=== PATIENT | female | born 1995 | race Caucasian/White ===

== ENCOUNTER 2022-05-25 10:13 | Emergency (ER) | payer OTHER ==
[~2022-05-25] VITALS: Ht 165.1 cm; Wt 117.0 kg
[2022-05-25 10:25] VITALS: BP 127/65
--- NOTE | 2022-05-25 10:28 | NUR ---
AMBULATED TO BED 8
[2022-05-25] MEDS ORDERED: KETOROLAC 60 MG/2 ML VIAL IM ONE (10:40)
--- NOTE | 2022-05-25 10:49 | NUR ---
PT AMBULATED TO RESTROOM
--- NOTE | 2022-05-25 10:50 | NUR ---
26YO FEMALE PT C/O ACHING / NECK PAIN XLASTNIGHT. PT STATES HEARING A "POP" WHILE STRETCHING NECK. NOTES MILD WEAKNESS IN R THUMB. DENIES N/V/D , CHEST PAIN OR SOB. NUMBING OR LOSS OF SENSATION. NO VISIBLE INJURY IN NECK , ARM OR THUMB. STATES MILD RELIEF AFTER TAKING TYLENOL LAST NIGHT. LIMITED ROM IN NECK W/ VISIBLE DISCOMFORT. PT AAOX4, RESPIRATIONS EVEN AND UNLABORED. HOB POSITIONED PER COMFORT. HX: DENIES NKA
[2022-05-25 11:14] VITALS: BP 127/65
--- NOTE | 2022-05-25 11:14 | NUR ---
Patient discharged with v/s stable. Written and verbal after care instructions FOR MUSCLE PAIN given and explained. Patient verbalized understanding. Ambulatory with steady gait. All questions addressed prior to discharge. Advised to follow up with PMD.
== END 2022-05-25 11:14 | disposition home or self-care (01) ==
LOC: MED 10:13
DX: M54.2 Cervicalgia (principal)
CPT/HCPCS: 81025; 99282

== ENCOUNTER 2024-01-23 10:20 | Emergency (ER) | payer OTHER ==
[~2024-01-23] VITALS: Ht 167.6 cm; Wt 111.1 kg
[2024-01-23 10:34] VITALS: BP 139/68; PULSE 89; RESP 18; TEMP 97.9; O2SAT 97
[2024-01-23 11:00] VITALS: O2SAT 97
[2024-01-23] MEDS: KETOROLAC 30 MG/ML VIAL IM ONE (11:27)
[2024-01-23] MEDS: LIDOCAINE 5% 1 EA PATCH TP ONE (11:27)
[2024-01-23 13:30] VITALS: BP 135/70; PULSE 88; RESP 18; TEMP 98.3; O2SAT 98
== END 2024-01-23 13:30 | disposition home or self-care (01) ==
LOC: MED 10:20
DX: R07.81 Pleurodynia (principal); Z91.018 Allergy to other foods
CPT/HCPCS: 71101; 81025; 96372; 99283; J1885

== ENCOUNTER 2024-05-23 20:15 | Emergency (ER) | payer OTHER ==
[~2024-05-23] VITALS: Ht 165.1 cm; Wt 112.9 kg
[2024-05-23 20:34] VITALS: BP 172/100; RESP 18; TEMP 98; O2SAT 98
[2024-05-24] MEDS: KETOROLAC 60 MG/2 ML VIAL IM ONE (00:31)
[2024-05-24] MEDS ORDERED: NAPR-337 PO (02:13)
[2024-05-24] MEDS ORDERED: CYCL-711 PO (02:13)
[2024-05-24 02:29] VITALS: BP 172/100; RESP 18; TEMP 98; O2SAT 98
== END 2024-05-24 02:29 | disposition home or self-care (01) ==
LOC: MED 20:15
DX: S16.1XXA Strain of muscle, fascia and tendon at neck level, initial encounter (principal); S29.012A Strain of muscle and tendon of back wall of thorax, initial encounter; S40.011A Contusion of right shoulder, initial encounter; Z79.899 Other long term (current) drug therapy; Z91.018 Allergy to other foods; V89.2XXA Person injured in unspecified motor-vehicle accident, traffic, initial encounter; Y93.89 Activity, other specified; Y92.410 Unspecified street and highway as the place of occurrence of the external cause; Y99.8 Other external cause status
CPT/HCPCS: 72050; 72072; 73030; 96372; 99284; J1885